=== PATIENT | female | born 1995 | race Two or more races ===

== ENCOUNTER 2025-03-10 12:01 | Emergency (ER) | payer MEDICAID, SELFPAY ==
[2025-03-10 12:02] VITALS: BMI 32.0
[2025-03-10 12:25] VITALS: BP 137/82; PULSE 99; RESP 18; TEMP 36.8; O2SAT 99; BMI 32.4
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
[2025-03-10] MEDS: LIDOCAINE HCL 1% 20 ML VIAL 10 ML INFL (14:45)
== END 2025-03-10 15:10 | disposition home or self-care (01) ==
PROVIDERS: Emergency Provider Emergency Medicine; PCP Physician Assistant
DX: S99.922A Unspecified injury of left foot, initial encounter (principal); T16.1XXA Foreign body in right ear, initial encounter; W22.8XXA Striking against or struck by other objects, initial encounter; W44.9XXA Unspecified foreign body entering into or through a natural orifice, initial encounter; Y93.01 Activity, walking, marching and hiking
CPT/HCPCS: 73630; 99283; J3490